=== PATIENT | female | born 1985 | race Caucasian/White ===

== ENCOUNTER 2016-07-22 00:26 | Observation (INO) | payer BC ==
[~2016-07-22 00:26] MED LIST: OXYC1SOL5 PO; PREN0.01 PO
[2016-07-22] MEDS ORDERED: LACTATED RINGER'S 1000 ML INJ 1,000 ML IV STA (00:51)
[2016-07-22] MEDS ORDERED: ONDANSETRON HCL 4 MG/2 ML VIAL IV ONE (01:00)
--- NOTE | 2016-07-22 01:04 | PD ---
HPI Chief Complaint Nausea vomiting with mild contractions Date Seen: Jul 22, 2016 Time Seen: 00:30 Travel History International Travel<30 Days: No Contact w/Intl Traveler<30Days: No Known Affected Area: No History of Present Illness HPI Patient is a 31-year-old who is at 34 weeks and 4 days who complains of nausea and vomiting since 5 PM tonight. Patient has had emesis 8 episodes without the ability to tolerate any fluids orally. The past hour she started having some abdominal cramping along with the nausea. Zofran was not effective when taken orally. Denies fever. She does have some mild diarrhea that started just recently. No one else in the family is ill at this time. Good movement Para: 1 : 2 Last Menstrual Period: Jul 22, 2016 (nedra August 31, 2016) History Past Medical History Medical History: Denies Significant Hx Obstetric History Obstetric History Previous section Breast augmentation Family History Family History: Negative Social History Alcohol Use: No Tobacco Use: No Substance Abuse: No Allergies-Medications (Allergen,Severity, Reaction): Coded Allergies: Sulfa (Verified Allergy, Intermediate, 11/22/14) Home Meds Active Scripts Oxycodone W/ Acetaminophen (Oxycodone/Acetaminophen 5-325 mg/5Ml)1 Tab Tab2 Tab PO Q4H PRN (PAIN SCALE 5 TO 10) #62 TAB Prov:Placido Short MD 12/01/14 Reported Medications Multivit/Min/Fol Ac/Iron/Pren ( Vit ( Plus)) Tab1 Tab PO DAILY 11/22/14 Review of Systems Except as stated in HPI: all other systems reviewed are Neg Physical Exam Narrative GENERAL: Well-nourished, well-developed patient. SKIN: Warm and dry. HEAD: Normocephalic and atraumatic. EYES: No scleral icterus. No injection or drainage. ENT: No nasal drainage noted. Mucous membranes pink. Airway patent. NECK: Supple, trachea midline. No JVD. CARDIOVASCULAR: Regular rate and rhythm without murmurs, gallops, or rubs. RESPIRATORY: Breath sounds equal bilaterally. No accessory muscle use. BREASTS: Bilateral exam showed no masses , no retractions, no nipple discharge. ABDOMEN/GI: Abdomen soft, non-tender, bowel sounds present, no rebound, no guarding Gravid to [-] weeks size Fundal Height: [34-] GENITOURINARY: Deferred External Genitalia: intact and normal in appearance BUS glands: [-] Cervix: [-] Dilatation: [-] Effacement: [-] Station: [-] Presentation: [-] Membranes: [intact or ruptured] Uterine Contractions: [-Irregular] FHT's: Category: [1-] Baseline: 140 Reactive: Moderate Variability: Moderate Decels: Absent EXTREMITIES: No cyanosis or edema. BACK: Nontender without obvious deformity. No CVA tenderness. NEUROLOGICAL: Awake and alert. Motor and sensory grossly within normal limits. Five out of 5 muscle strength in all muscle groups. Normal speech. Briseida Richardson MD Jul 22, 2016 01:04
[2016-07-22 01:17] LABS: HEMATOCRIT 38.9 % (35.0-46.0); MEAN CELL VOLUME 84.9 FL (80.0-100.0); MEAN CORPUSCULAR HEMOGLOBIN 29.9 PG (27.0-34.0); MEAN CORPUSCULAR HGB CONC 35.3 % (32.0-36.0); PLATELET COUNT 313 TH/MM3 (150-450); RED BLOOD COUNT 4.59 MIL/MM3 (4.00-5.30); RED CELL DISTRIBUTION WIDTH 13.8 % (11.6-17.2); REVIEW FLAG FINAL; WHITE BLOOD COUNT 18.3 TH/MM3 (4.0-11.0)
[2016-07-22 01:24] LABS: BACTERIA, URINE RARE /hpf; BLOOD, URINE NEG (NEG); COMMENT (UR) CULT NOT INDICATED; CULTURE IF INDICATED CULT NOT INDICATED; GLUCOSE,URINE NEG (NEG); HYALINE CAST, URINE 1 /lpf (RARE); KETONE, URINE 80 mg/dL (NEG); MUCUS URINE FEW /lpf (OCC); NITRITE,URINE NEG (NEG); PH, URINE 6.5 (5.0-8.5); SQUAMOUS EPITHELIAL CELL URINE 5 /hpf (0-5); URINE COLOR YELLOW (YELLW/STRAW)
[2016-07-22 01:38] LABS: BICARBONATE 21.6 MEQ/L (21.0-32.0); POTASSIUM 3.9 MEQ/L (3.5-5.1)
[2016-07-22] MEDS ORDERED: LACTATED RINGER'S 1000 ML INJ 1,000 ML IV SCH (01:55)
[2016-07-22] MEDS ORDERED: SODIUM CHLORIDE 0.9% FLUSH 5 ML FLUSH IVF PRN (02:00)
[2016-07-22] MEDS ORDERED: ONDANSETRON HCL 4 MG/2 ML VIAL IV PRN (02:00)
[2016-07-22 04:51] LABS: MRSA PCR NEGATIVE (NEGATIVE); STAPH AUREUS PCR NEGATIVE (NEGATIVE)
[2016-07-22 06:06] LABS: BASOPHIL # 0.1 TH/MM3 (0-0.2); BASOPHIL % 0.5 % (0.0-2.0); HEMATOCRIT 34.8 % (35.0-46.0); HEMO FLAGS DIFF FINAL; LYMPH % 3.9 % (9.0-44.0); LYMPHOCYTE # 0.6 TH/MM3 (1.0-4.8); MEAN CELL VOLUME 86.4 FL (80.0-100.0); MEAN CORPUSCULAR HEMOGLOBIN 28.7 PG (27.0-34.0); MEAN CORPUSCULAR HGB CONC 33.3 % (32.0-36.0); MONO % 3.3 % (0.0-8.0); NEUT % 92.3 % (16.0-70.0); PLATELET COUNT 242 TH/MM3 (150-450); RED BLOOD COUNT 4.03 MIL/MM3 (4.00-5.30); RED CELL DISTRIBUTION WIDTH 13.6 % (11.6-17.2); WHITE BLOOD COUNT 15.2 TH/MM3 (4.0-11.0)
[2016-07-22 06:30] LABS: BICARBONATE 22.1 MEQ/L (21.0-32.0); POTASSIUM 3.4 MEQ/L (3.5-5.1)
--- NOTE | 2016-07-22 07:12 | MH ---
cc: XAVIER DOVE DATE OF ADMISSION: 07/22/2016 REASON FOR EVALUATION at 34 weeks with nausea, vomiting and diarrhea. HISTORY OF PRESENT ILLNESS This is a 21-year-old white female, para 1-0-0-1, LMP of 11/17/2015, EDC of 08/31/2016. The patient reported abdominal tightness and pressure about 5:00 p.m. yesterday followed by acute onset of nausea and vomiting at 8:30 p.m. She called me just before midnight and because of symptoms refractory to Zofran was advised to come in for evaluation. She was seen by Dr. Richardson the hospitalist. White count was elevated at 18,000 and urine showed ketones. She was admitted for IV fluids and antiemetic therapy and is now improving. PAST MEDICAL/SURGICAL HISTORY 1. Breast augmentation 2003 and 2013. 2. 2014. ALLERGIES SULFA. TRANSFUSIONS None. SOCIAL HISTORY . Employed. Alcohol, tobacco and drugs are none. PHYSICAL EXAMINATION GENERAL: A gravid white female in no distress. HEENT: Exam is normal. CHEST: Clear. HEART: Regular rate. ABDOMEN: Gravid, nontender. Heart tones are normal. EXTREMITIES: Normal. BACK: Normal. PELVIC: normal. ASSESSMENT Gastroenteritis. PLAN Continue IV fluid hydration and antibiotic therapy until she can tolerate fluids well. She reports diarrhea x1 after midnight. MD RACHAEL Tucker/LAMBERT /6:47 AM /6:55 AM [facility]
[2016-07-22 08:52] VITALS: BP 123/72; PULSE 107
[2016-07-22 08:53] VITALS: RESP 16
[2016-07-22] MEDS ORDERED: SODIUM CHLORIDE 0.9% FLUSH 5 ML FLUSH IVF SCH (09:00)
[2016-07-22 12:15] LABS: BACTERIA, URINE RARE /hpf; BLOOD, URINE NEG (NEG); COMMENT (UR) CULT NOT INDICATED; CULTURE IF INDICATED CULT NOT INDICATED; GLUCOSE,URINE NEG (NEG); KETONE, URINE NEG (NEG); MUCUS URINE FEW /lpf (OCC); NITRITE,URINE NEG (NEG); PH, URINE 7.5 (5.0-8.5); SQUAMOUS EPITHELIAL CELL URINE 4 /hpf (0-5); URINE COLOR LIGHT-YELLOW (YELLW/STRAW)
[2016-07-23] MEDS ORDERED: LACTATED RINGER'S 1000 ML INJ 1,000 ML IV SCH (02:00)
== END 2016-07-22 13:53 | disposition home or self-care (01) ==
LOC: HOBED 00:26 → H2EA 02:02
PROVIDERS: ADMIT Obstetrics & Gynecology; ATTEND Obstetrics & Gynecology
DX: K52.9 Noninfective gastroenteritis and colitis, unspecified (principal); Z3A.34 34 weeks gestation of pregnancy
CPT/HCPCS: 80048; 81001; 85025; 85027; 87640; 87641; 96361; 96374; 99285; G0378; J2405; J7120

== ENCOUNTER 2016-08-04 12:09 | Inpatient (IN) | payer BC ==
[~2016-08-04] VITALS: Ht 162.6 cm; Wt 79.8 kg
[~2016-08-04 12:09] MED LIST changes: -OXYC1SOL5 PO
[2016-08-19] VITALS (13 sets, daily range): BP systolic 117–153; BP diastolic 70–95; PULSE 86–101; RESP 16–19; TEMP 97.7–98.7; O2SAT 97–99
--- NOTE | 2016-08-19 08:56 | MH ---
cc: XAVIER DOVE M.D. DATE OF ADMISSION: 08/19/2016 ADMISSION DIAGNOSES 1. at 37 weeks. 2. Recurrent preeclampsia. 3. Previous . 4. Low KENDRA-A hormone. HISTORY OF PRESENT ILLNESS The patient is a 31-year-old white female para 1-0-0-1 with an LMP of 10/2015, EDC of 08/31/2016 by dates, 09/09/2016 by early ultrasound. Her first TM screen was normal except for a low KENDRA-A hormone. Her course has been benign. Panorama testing was normal. Her AFP test was normal. Her blood pressure began to rise on 07/29/2016. She was placed on bedrest. She was admitted for 23-hour observation on 08/11/2016. Laboratory tests were normal except the 24-hour urine showed 300 mg protein in 24 hours. She has been maintained on bedrest, is asymptomatic except the blood pressures is in the 130/90+ range. Biophysical profiles biweekly have been normal. Her case was discussed with the [facility] on 07/2016. They recommended repeat at 37 weeks. The patient is now admitted for same. PAST MEDICAL HISTORY PREVIOUS SURGERY She had breast augmentation in 2003, re-do in 2013. MEDICATIONS Vitamins. ALLERGIES POLLEN. SULFA. TRANSFUSIONS None. SOCIAL HISTORY She is employed. PREVIOUS OB HISTORY in 11/28/2014 for severe preeclampsia with decels on her nonstress test. FAMILY HISTORY Non-contributory. PHYSICAL EXAMINATION GENERAL: A well-nourished, well-developed white female. VITAL SIGNS: Stable. Blood pressure elevated. HEENT: Exam is normal. CHEST: Clear. HEART: Regular rate. BREASTS: Symmetrical. ABDOMEN: Gravid. EFW of the 3000 grams. Vertex presentation. Anterior placenta. PELVIC: Cervix is closed. EXTREMITIES: 2+ edema. NEUROLOGIC: Reflexes normal. ASSESSMENT As above. PLAN She is now admitted for repeat section. The risks, benefits and complications including infection, injury, bleeding and prematurity are discussed and accepted versus the risk of maternal or morbidity by maintaining the to a later time. The patient is advised delivery. MD RACHAEL Tucker/OLIVIA /8:28 AM /8:37 AM
[2016-08-19] MEDS ORDERED: LACTATED RINGER'S 1000 ML INJ 1,000 ML IV SCH (13:04)
[2016-08-19] MEDS ORDERED: ceFAZolin 2 GM PREMIX 50 ML IV SCH (16:00)
[2016-08-19] MEDS ORDERED: CITRIC ACID-SODIUM CITRATE LIQ 30 ML UDC PO SCH (16:00)
[2016-08-19] MEDS ORDERED: LACTATED RINGER'S 1000 ML IV ONE (16:00)
[2016-08-19] MEDS ORDERED: LACTATED RINGER'S 1000 ML IV SCH (16:00)
[2016-08-19 16:13] LABS: AUTOMATED NEUTROPHIL # 11.1 TH/MM3 (1.8-7.7); BASOPHIL % 0.3 % (0.0-2.0); EOSINOPHIL # 0.1 TH/MM3 (0-0.4); HEMATOCRIT 35.3 % (35.0-46.0); HEMO FLAGS DIFF FINAL; LYMPHOCYTE # 1.8 TH/MM3 (1.0-4.8); MEAN CELL VOLUME 82.1 FL (80.0-100.0); MEAN CORPUSCULAR HEMOGLOBIN 27.4 PG (27.0-34.0); MEAN CORPUSCULAR HGB CONC 33.3 % (32.0-36.0); MONO % 5.4 % (0.0-8.0); NEUT % 80.3 % (16.0-70.0); PLATELET COUNT 293 TH/MM3 (150-450); RED CELL DISTRIBUTION WIDTH 14.7 % (11.6-17.2); WHITE BLOOD COUNT 13.9 TH/MM3 (4.0-11.0)
[2016-08-19 16:21] LABS: BACTERIA, URINE RARE /hpf; BLOOD, URINE SMALL (NEG); COMMENT (UR) CULT NOT INDICATED; CULTURE IF INDICATED CULT NOT INDICATED; GLUCOSE,URINE NEG (NEG); KETONE, URINE NEG (NEG); MUCUS URINE FEW /lpf (OCC); NITRITE,URINE NEG (NEG); PH, URINE 6.5 (5.0-8.5); SQUAMOUS EPITHELIAL CELL URINE 10 /hpf (0-5); URINE COLOR YELLOW (YELLW/STRAW)
[2016-08-19] MEDS ORDERED: ONDANSETRON HCL 4 MG/2 ML VIAL ONE (16:23)
[2016-08-19] MEDS ORDERED: OXYTOCIN 10 UNIT/ML AMP ONE (16:23)
[2016-08-19] MEDS ORDERED: MORPHINE SULFATE PF 5 MG/10 ML VIAL ONE (16:23)
[2016-08-19] MEDS ORDERED: ACETAMINOPHEN 1000 MG/100 ML VIAL IV ONE (16:24)
[2016-08-19 16:41] LABS: ANION GAP 11 MEQ/L (5-15); AST (GOT) 12 U/L (15-37); BICARBONATE 21.6 MEQ/L (21.0-32.0); BLOOD UREA NITROGEN 8 MG/DL (7-18); CHLORIDE 105 MEQ/L (98-107); GLOMERULAR FILTRATION RATE 136 ML/MIN (>89); POTASSIUM 3.7 MEQ/L (3.5-5.1); SODIUM (NA) 138 MEQ/L (136-145)
[2016-08-19 16:45] LABS: ALKALINE PHOSPHATASE 116 U/L (45-117); ALT (GPT) 20 U/L (10-53); TOTAL BILIRUBIN ADULT 0.2 MG/DL (0.2-1.0)
[2016-08-19] MEDS ORDERED: EPIDURAL-NALOXONE HCL 0.4 MG/ML AMP IV PRN (17:25)
[2016-08-19] MEDS ORDERED: EPIDURAL-DO NOT ADMINISTER ANTICOAGULANTS XX PRN (17:25)
[2016-08-19] MEDS ORDERED: EPIDURAL-NO SYSTEMIC NARCOTICS XX PRN (17:25)
[2016-08-19] MEDS ORDERED: EPIDURAL-DIPHENHYDRAMINE HCL 50 MG CAP PO PRN (17:25)
[2016-08-19] MEDS ORDERED: EPIDURAL-DIPHENHYDRAMINE HCL 50 MG/ML VIAL IV PUSH PRN (17:25)
[2016-08-19] MEDS ORDERED: OXYTOCIN 30 UNITS-500ML PREMIX 500 ML IV PRN (18:15)
[2016-08-19] MEDS: LACTATED RINGER'S 1000 ML INJ 1,000 ML IV SCH (18:22)
[2016-08-19] MEDS: MAGNESIUM SULFATE 40 GM PREMIX 1,000 ML IV SCH (18:22)
[2016-08-19] MEDS ORDERED: MAGNESIUM SULFATE 40 GM PREMIX 1,000 ML ONE (18:23)
[2016-08-19] MEDS ORDERED: MAGNESIUM SULFATE 4 GM PREMIX 100 ML ONE (18:23)
[2016-08-19] MEDS ORDERED: MAGNESIUM SULFATE 4 GM PREMIX 100 ML IV ONE (18:30)
[2016-08-19] MEDS ORDERED: OXYTOCIN 30 UNITS-500ML PREMIX 500 ML IV ONE (18:30)
[2016-08-19] MEDS ORDERED: ONDANSETRON HCL 4 MG/2 ML VIAL IVP PRN (18:30)
[2016-08-19] MEDS ORDERED: DOCUSATE SODIUM 50 MG/SENNA 8.6 MG TAB PO PRN (18:30)
[2016-08-19] MEDS ORDERED: SIMETHICONE 80 MG CHEWABLE TAB PO PRN (18:30)
[2016-08-19] MEDS ORDERED: NIFEdipine 10 MG CAP PO PRN ×3 (18:30→19:15)
[2016-08-19] MEDS ORDERED: SODIUM CHLORIDE 0.9% FLUSH 5 ML FLUSH IV PRN (18:30)
[2016-08-19] MEDS ORDERED: ZOLPIDEM TARTRATE 5 MG TAB PO PRN (18:30)
[2016-08-19] MEDS ORDERED: SODIUM CHLORIDE 0.9% FLUSH 10 ML FLUSH IV FLUSH PRN (18:30)
[2016-08-19] MEDS ORDERED: oxyCODONE/ACETAMINOPHEN 5 MG/325 MG TAB PO PRN (18:30)
[2016-08-19] MEDS ORDERED: MEASLES, MUMPS, RUBELLA VACCINE 0.5 ML VIAL SQ ONE (18:30)
[2016-08-19] MEDS ORDERED: CALCIUM GLUCONATE 10% 1 GM/10 ML VIAL IV PUSH PRN (18:30)
[2016-08-19] MEDS ORDERED: LACTATED RINGER'S 1,000 ML BAG IV ONE (18:55)
[2016-08-19] MEDS ORDERED: DEXAMETHASONE SOD PHOS 4 MG/ML VIAL IV ONE (18:55)
[2016-08-19] MEDS ORDERED: KETOROLAC TROMETHAMINE 60 MG/2 ML (IM) VIAL IM ONE (18:55)
[2016-08-19] MEDS ORDERED: LABETALOL HCL 100 MG/20 ML VIAL IV PUSH PRN (19:30)
[2016-08-19] MEDS ORDERED: SODIUM CHLORIDE 0.9% FLUSH 5 ML FLUSH IV SCH (21:00)
[2016-08-19] MEDS ORDERED: SODIUM CHLORIDE 0.9% FLUSH 10 ML FLUSH IV FLUSH SCH (21:00)
[2016-08-19] MEDS ORDERED: AMMONIA AROMATIC INHALANT 0.33 ML ONE (22:47)
[2016-08-20] VITALS (15 sets, daily range): BP systolic 114–135; BP diastolic 67–83; PULSE 88–102; RESP 18–20; TEMP 97.4–98.6
[2016-08-20] MEDS: LACTATED RINGER'S 1000 ML INJ 1,000 ML IV SCH (08:28)
[2016-08-20 09:23] LABS: AUTOMATED NEUTROPHIL # 16.1 TH/MM3 (1.8-7.7); BASOPHIL % 0.2 % (0.0-2.0); EOSINOPHIL % 0.1 % (0.0-4.0); HEMO FLAGS DIFF FINAL; LYMPH % 9.4 % (9.0-44.0); LYMPHOCYTE # 1.8 TH/MM3 (1.0-4.8); MEAN CELL VOLUME 82.9 FL (80.0-100.0); MEAN CORPUSCULAR HEMOGLOBIN 26.7 PG (27.0-34.0); MEAN CORPUSCULAR HGB CONC 32.2 % (32.0-36.0); MONO % 5.3 % (0.0-8.0); PLATELET COUNT 275 TH/MM3 (150-450); RED CELL DISTRIBUTION WIDTH 14.8 % (11.6-17.2)
[2016-08-20 10:13] LABS: BICARBONATE 26.7 MEQ/L (21.0-32.0); MAGNESIUM 6.1 MG/DL (1.5-2.5)
[2016-08-20 10:39] LABS: CALCIUM-PROTEIN CORRECTED 7.9 MG/DL (8.5-10.1)
[2016-08-20] MEDS: MAGNESIUM SULFATE 40 GM PREMIX 1,000 ML IV SCH (14:59)
[2016-08-20] MEDS: KETOROLAC TROMETHAMINE 30 MG/ML (IVP) VIAL IV PUSH SCH (17:40)
[2016-08-21] VITALS: RESP 16
[2016-08-21 04:00] VITALS: BP 124/75; PULSE 84; RESP 18; TEMP 98.4
[2016-08-21] MEDS: KETOROLAC TROMETHAMINE 30 MG/ML (IVP) VIAL IV PUSH SCH ×2 (04:28→07:59)
[2016-08-21 08:00] VITALS: BP 115/79; PULSE 88; RESP 18; TEMP 98.7
[2016-08-21] MEDS ORDERED: DIPHTH/TETANUS/ACEL PERTUSSIS (BOOSTER) 0.5 ML VIAL/PFS IM ONE (09:00)
[2016-08-21] MEDS: oxyCODONE/ACETAMINOPHEN 5 MG/325 MG TAB PO PRN ×3 (12:18→20:25)
[2016-08-21] MEDS: IBUPROFEN 600 MG TAB PO PRN ×2 (14:21→20:24)
[2016-08-21 15:00] VITALS: BP 117/78; PULSE 90; RESP 16; TEMP 98.4
[2016-08-22 01:00] VITALS: BP 138/91; PULSE 83; RESP 18; TEMP 97.7
[2016-08-22] MEDS: oxyCODONE/ACETAMINOPHEN 5 MG/325 MG TAB PO PRN ×2 (01:13→06:12)
[2016-08-22 06:10] VITALS: BP 129/79
[2016-08-22] MEDS: IBUPROFEN 600 MG TAB PO PRN (06:12)
[2016-08-22 08:00] VITALS: BP 144/91; PULSE 86; RESP 18; TEMP 97.8
[2016-08-22] MEDS ORDERED: OXYC1TAB63 PO (08:22)
--- NOTE | 2016-08-22 08:22 | HHI.DCPOC ---
Discharge Care Plan Report Symptoms to Your Doctor -Temperate above 100.5 degrees -Redness, of incision or excessive or foul smelling drainage -Unusual pain or calf pain -Increased vaginal bleeding -Painful or difficulty urinating -Feelings of extreme sadness or anxiety after 2 weeks Goals to Promote Your Health * To prevent worsening of your condition and complications * To maintain your health at the optimal level Directions to Meet Your Goals Take your medications as prescribed Follow your dietary instruction Follow activity as directed Ensure plenty of rest for recovery Drink fluids for hydration Keep your appointments as scheduled Take your immunizations and boosters as scheduled If your symptoms worsen call your PCP, if no PCP go to Urgent Care Center or Emergency Room Smoking is Dangerous to Your Health. Avoid second hand smoke Call the 24-hour crisis hotline for domestic abuse at Placido Short MD Aug 22, 2016 08:22
--- NOTE | 2016-08-23 12:49 | MP ---
cc: XAVIER DOVE M.D. DATE OF SURGERY: 08/19/2016 PREOPERATIVE DIAGNOSIS 1. at 37 weeks. 2. Severe preeclampsia. 3. Previous . 4. Low KENDRA A hormone. POSTOPERATIVE DIAGNOSIS 1. at 37 weeks. 2. Severe preeclampsia. 3. Previous . 4. Low KNEDRA A hormone. 5. Delivered. PROCEDURE Repeat low transverse section. ANESTHESIA Spinal. SURGEON Deja Bass MD [employer] ESTIMATED BLOOD LOSS 600 cc. FLUIDS Three liters crystalloid. OBJECTIVE FINDINGS Following the induction of adequate spinal anesthesia the patient was prepped and draped supine on the operating table in the left lateral tilt position in the usual sterile fashion with the bladder being drained via Merchant catheterization. The abdomen was opened through a Pfannenstiel incision using a knife to cut down through the skin to the fascia. The fascia was opened transversely and stripped from the muscles. The rectus muscle was split in the midline and the peritoneum opened sharply without incident. The bladder flap was taken down sharply and retracted with a Igor blade. The lower uterine segment was incised transversely with a knife and extended with blunt dissection. The uterus revealed clear fluid. The baby was in the LOT position. The vacuum extractor was applied to the occiput and used to lift the head through the uteroabdominal wound. The mouth was suctioned, cord clamped and cut, and nuchal cord reduced. The baby was passed to the team, a viable vigorous female, Apgars 9 and 9, weight 6 pounds even. Cord blood was collected for typing. The placenta was manually removed. The uterine cavity was wiped clean with laps. The uterus was exteriorized and closed in two layers of running suture, first with a running locking stitch of 0 Vicryl, the second with a running imbricating stitch of 0 Vicryl. Posterior inspection of the uterus, tubes and ovaries was normal. The uterus was paced in the peritoneal cavity. Irrigation was performed. No bleeding was evident. The bladder flap was closed with a running stitch of 3-0 Vicryl. All laps and retractors were removed. Counts were correct. The anterior peritoneum was closed with a running stitch of 2-0 Vicryl. The fascia was closed with a running locking stitch of 0 Vicryl corner to midline and tied, subcu closed with 3-0 Vicryl and skin with running subcuticular 3-0 Monocryl. Dermabond was applied. All counts were correct. The patient was awake and taken to the recovery room in good condition. MD RACHAEL Tucker/LAMBERT /6:29 PM /12:40 PM
--- NOTE | 2016-08-29 07:26 | MD ---
cc: XAVIER DOVE ADMISSION DATE: 08/19/2016 DISCHARGE DATE: 08/22/2016 ADMISSION DIAGNOSIS 1. 37 weeks. 2. Severe preeclampsia. 3. Previous 4. Low Pap A hormone. DISCHARGE DIAGNOSIS 1. 37 weeks. 2. Severe preeclampsia. 3. Previous 4. Low Pap A hormone. 5. Delivered. HISTORY OF PRESENT ILLNESS The patient is a 31-year-old white female para 1-0-0-1 with EDC of 09/09/2016 by early ultrasound. Her first TM screen was pertinent for a low Pap A hormone. She was followed carefully for growth and development, and blood pressure monitoring. Her labs include Rh positive,VDRL nonreactive, rubella immune, rubeola immune, HAA negative, Pap negative, glucose screen was normal. Strep culture positive. She developed a rise in blood pressure on 07/29/2016. She began biweekly testing, was admitted to the hospital on 08/11/2016. Laboratory studies were pertinent for elevated protein of 300 mg in 24 hours. She was maintained on bedrest at home. Consultation was obtained via phone with [facility] in [place], recommended delivery at 37 weeks. She was admitted on 08/19/2016, underwent a repeat low transverse section with delivery of a viable vigorous female. Apgars 9 and 9, weight 6 pounds even. The baby was named Darien Coats. Postop she received magnesium sulfate for 24 hours. Her blood pressure rapidly improved. Her pre and postop labs were normal. She was advised NPV, light activity, no driving, return to see me in 1 week. She is to call for abnormal pain, bleeding, temperature, signs of infection, depression. She was given a prescription for Percocet 5, one to two p.o. q.4 hours p.r.n. pain #60. MD RACHAEL Tucker/TRICIA /8:28 AM /7:00 AM ED
== END 2016-08-22 10:59 | disposition home or self-care (01) | DRG 766 ==
LOC: H2EB 08-19 15:30 → H1EA 08-19 20:56 → H2EA 08-19 20:56 → H1EA 08-20 18:52
PROVIDERS: ADMIT Obstetrics & Gynecology; ATTEND Obstetrics & Gynecology
PROC: 10D00Z1 Extraction of Products of Conception, Low, Open Approach (ICD-10-PCS; principal; 2016-08-19)
DX: O14.14 Severe pre-eclampsia complicating childbirth (principal); O99.824 Streptococcus B carrier state complicating childbirth; O34.211 Maternal care for low transverse scar from previous cesarean delivery; Z37.0 Single live birth; Z3A.37 37 weeks gestation of pregnancy; O69.81X0 Labor and delivery complicated by cord around neck, without compression, not applicable or unspecified
CPT/HCPCS: 59025; 76818; 76820; 80048; 80053; 81001; 83735; 84155; 84550; 85025; 86850; 86900; 86901; J0131; J0690; J1100; J1885; J2274; J2405; J2590; J3475; J7120

== ENCOUNTER 2016-08-11 15:56 | Observation (INO) | payer BC ==
[~2016-08-11] VITALS: Ht 152.4 cm; Wt 65.3 kg
[~2016-08-11 15:56] MED LIST changes: +OXYC1SOL5 PO
[2016-08-11 17:58] LABS: BACTERIA, URINE FEW /hpf; BLOOD, URINE NEG (NEG); GLUCOSE,URINE NEG (NEG); KETONE, URINE NEG (NEG); MUCUS URINE FEW /lpf (OCC); NITRITE,URINE NEG (NEG); SQUAMOUS EPITHELIAL CELL URINE 9 /hpf (0-5); URINE COLOR YELLOW (YELLW/STRAW)
[2016-08-11 17:59] LABS: ANION GAP 12 MEQ/L (5-15); AST (GOT) 14 U/L (15-37); BICARBONATE 22.8 MEQ/L (21.0-32.0); BLOOD UREA NITROGEN 7 MG/DL (7-18); CHLORIDE 104 MEQ/L (98-107); GLOMERULAR FILTRATION RATE 93 ML/MIN (>89); POTASSIUM 3.8 MEQ/L (3.5-5.1); SODIUM (NA) 139 MEQ/L (136-145); URIC ACID 4.3 MG/DL (2.6-6.0)
[2016-08-11 18:00] LABS: COMMENT (UR) CULT NOT INDICATED; CULTURE IF INDICATED CULT NOT INDICATED
[2016-08-11 18:02] LABS: ALKALINE PHOSPHATASE 115 U/L (45-117); ALT (GPT) 17 U/L (10-53); TOTAL BILIRUBIN ADULT 0.1 MG/DL (0.2-1.0)
[2016-08-11 18:08] LABS: AUTOMATED NEUTROPHIL # 9.5 TH/MM3 (1.8-7.7); BASOPHIL % 0.4 % (0.0-2.0); EOSINOPHIL # 0.1 TH/MM3 (0-0.4); EOSINOPHIL % 1.1 % (0.0-4.0); HEMATOCRIT 36.5 % (35.0-46.0); HEMO FLAGS DIFF FINAL; LYMPH % 14.2 % (9.0-44.0); LYMPHOCYTE # 1.7 TH/MM3 (1.0-4.8); MEAN CELL VOLUME 83.9 FL (80.0-100.0); MEAN CORPUSCULAR HEMOGLOBIN 27.6 PG (27.0-34.0); MEAN CORPUSCULAR HGB CONC 32.9 % (32.0-36.0); MONO % 6.7 % (0.0-8.0); NEUT % 77.6 % (16.0-70.0); PLATELET COUNT 325 TH/MM3 (150-450); RED BLOOD COUNT 4.35 MIL/MM3 (4.00-5.30); RED CELL DISTRIBUTION WIDTH 14.2 % (11.6-17.2); WHITE BLOOD COUNT 12.2 TH/MM3 (4.0-11.0)
[2016-08-11] MEDS ORDERED: ZOLPIDEM TARTRATE 10 MG TAB PO PRN (19:00)
--- NOTE | 2016-08-11 19:07 | MH ---
cc: XAVIER DOVE DATE OF ADMISSION: 08/11/2016 ADMITTING DIAGNOSIS: -induced hypertension, preeclampsia at 36 weeks, previous . HISTORY OF PRESENT ILLNESS The patient is a 31-year-old white female para 1-0-0-1, EDC of 09/09/2016 by early ultrasound. Her first TM screen was normal except for a low Pap A hormone. Her first was notable for severe preeclampsia required delivery at 37-38 weeks by . Her blood pressure has been starting to increase since about 07/29/2016. Her laboratory tests within normal. Ultrasound showed appropriate growth and biweekly BPPs have been normal. She called this afternoon with BP at home about 160/100, was advised to come in for evaluation. Blood pressure here initially elevated in that range is now down to about 145/88 with rest. She denies headache, visual changes or abdominal pain. She has had a few mild contractions, slightly increase in peripheral edema. PAST SURGICAL HISTORY: 1. Breast augmentation in 2003. 2. Revision in 2013. ALLERGIES: Pollen and sulfa. TRANSFUSIONS: None. OBSTETRICAL HISTORY: 11/28/2014 for preeclampsia. SOCIAL HISTORY: She works from home. She is . Alcohol, tobacco and drugs: None. FAMILY HISTORY: Noncontributory. PHYSICAL EXAMINATION: Reveals a gravid white female in no distress. HEENT: Normal with mild facial edema. Extremities: Normal. Chest: Clear. Heart: Regular rate. Abdomen: Gravid. EFW is 2800 grams. Reflexes are 2+ and equal. Extremities: 2+ edema to the knees. ASSESSMENT: As above. PLAN: She is now admitted for laboratory evaluation. Initial studies were normal. She will be admitted for 24 hour urine, observation, and if she is stable, will try to maintain the . If she shows signs of worsening disease, she will proceed with delivery. MD RACHAEL Tucker/TRICIA /6:46 PM /7:00 PM
[2016-08-11 19:15] VITALS: RESP 18
[2016-08-11] MEDS ORDERED: ALUMINUM/MAGNESIUM/SIMETH 30 ML CUP PO PRN (19:15)
[2016-08-11 19:54] VITALS: BP 139/90; PULSE 84
[2016-08-11 19:55] VITALS: BP 147/91; PULSE 83; RESP 18
[2016-08-11] MEDS ORDERED: diphenhydrAMINE HCL 25 MG CAP PO PRN (20:45)
[2016-08-11 22:03] VITALS: BP 143/88; PULSE 103
[2016-08-11 22:15] VITALS: RESP 18
[2016-08-12] VITALS (10 sets, daily range): BP systolic 130–137; BP diastolic 82–91; PULSE 77–93; RESP 18; TEMP 97.5–98.4
--- NOTE | 2016-08-12 18:39 | HHI.DCPOC ---
Discharge Care Plan Report Symptoms to Your Doctor -Temperate above 100.5 degrees -Redness, of incision or excessive or foul smelling drainage -Unusual pain or calf pain -Increased vaginal bleeding -Painful or difficulty urinating -Feelings of extreme sadness or anxiety after 2 weeks Goals to Promote Your Health * To prevent worsening of your condition and complications * To maintain your health at the optimal level Directions to Meet Your Goals Take your medications as prescribed Follow your dietary instruction Follow activity as directed Ensure plenty of rest for recovery Drink fluids for hydration Keep your appointments as scheduled Take your immunizations and boosters as scheduled If your symptoms worsen call your PCP, if no PCP go to Urgent Care Center or Emergency Room Smoking is Dangerous to Your Health. Avoid second hand smoke Call the 24-hour crisis hotline for domestic abuse at Placido Short MD Aug 12, 2016 18:39
[2016-08-12 21:59] LABS: CREAT 24 TIMED 119.1 MG/DL
== END 2016-08-12 19:41 | disposition home or self-care (01) ==
LOC: HOBED 15:56 → H2EA 18:28
PROVIDERS: ADMIT Obstetrics & Gynecology; ATTEND Obstetrics & Gynecology
DX: O13.3 Gestational [pregnancy-induced] hypertension without significant proteinuria, third trimester (principal); O34.219 Maternal care for unspecified type scar from previous cesarean delivery; Z3A.36 36 weeks gestation of pregnancy
CPT/HCPCS: 36415; 76819; 76820; 80053; 81001; 82248; 82570; 84157; 84550; 85025; 96360; 96361; 99284; G0378

== ENCOUNTER 2017-12-19 15:47 | Inpatient (IN) ==
[2017-12-19] MEDS ORDERED: Morphine Sulfate PF Inj 5 MG/10 ML Ampul ONE (17:05)
[2017-12-19] MEDS ORDERED: Ketorolac Inj 30 MG/ML (IVP) Vial ONE (17:05)
[2017-12-19 17:23] LABS: Baso % (Auto) 0.3 % (0.0-2.0); Eos # (Auto) 0.1 th/mm3 (0.0-0.4); Eos % (Auto) 0.5 % (0.0-4.0); Hematocrit 35.8 % (35.0-46.0); Hemoglobin 11.8 gm/dL (11.6-15.3); Lymph % (Auto) 17.3 % (9.0-44.0); Mean Corpuscular HGB Conc 32.9 % (32.0-36.0); Mean Corpuscular Hemoglobin 27.2 pg (27.0-34.0); Mean Corpuscular Volume 82.9 fL (80.0-100.0); Mean Platelet Volume 7.9 fL (7.0-11.0); Mono # (Auto) 0.9 th/mm3 (0.0-0.9); Mono % (Auto) 7.6 % (0.0-8.0); Neut # (Auto) 8.6 th/mm3 (1.8-7.7); Neut % (Auto) 74.3 % (16.0-70.0); Platelet Count 288 th/mm3 (150-450); Red Blood Count 4.32 mil/mm3 (4.00-5.30); Red Cell Distribution Width 15.4 % (11.6-17.2); White Blood Count 11.5 th/mm3 (4.0-11.0)
[2017-12-19 17:34] LABS: Amphetamine Screen,Urine Neg (Neg); Barbiturate Screen,Urine Neg (Neg); Cannabinoid Screen,Urine Neg (Neg); Cocaine Screen,Urine Neg (Neg)
[2017-12-19 17:43] LABS: Alanine Aminotransferase 13 U/L (10-53); Albumin 2.6 g/dL (3.4-5.0); Anion Gap 11 meq/L (5-15); Aspartate Aminotransferase 12 U/L (15-37); Blood Urea Nitrogen 7 mg/dL (7-18); Calcium 8.7 mg/dL (8.5-10.1); Chloride 105 meq/L (98-107); Glomerular Filtration Rate Greater Than 89 mL/min (>89); Glucose,Random 66 mg/dL (74-106); Potassium 3.5 meq/L (3.5-5.1); Sodium 138 meq/L (136-145)
[2017-12-19 17:44] LABS: Opiate Screen,Urine Neg (Neg)
[2017-12-19 17:46] LABS: Alkaline Phosphatase 152 U/L (45-117)
[2017-12-19 17:59] LABS: Amorphous Sediment,Urine Rare /hpf; Bacteria,Urine Moderate /hpf; Bilirubin,Urine Negative (Negative); Clarity,Urine Cloudy (Clear); Color,Urine Yellow (Yellw/Straw); Glucose,Urine (UA) Negative (Negative); Leukocyte Esterase,Urine Small (Negative); Mucus,Urine Few /lpf (Occasional); Nitrite,Urine Negative (Negative); Specific Gravity,Urine 1.017 (1.002-1.035); Squamous Epithelial Cell,Urine 33 /hpf (0-5)
[2017-12-19] MEDS ORDERED: Citric Acid/Sodium Citrate Liq 30 ML UDC PO SCH (18:30)
[2017-12-19] MEDS ORDERED: ceFAZolin Inj 2,000 MG in Sodium Chlor 0.9% Inj 80 ML IV.SIG SCH (19:00)
[2017-12-19] MEDS ORDERED: Mag Sulf/Water 4 gm/100 ml 100 ML IV.SIG ONE ×2 (19:29→19:45)
[2017-12-19] MEDS ORDERED: Mag Sulf/Water 40 gm/1000 ml 40 GM/1,000 ML BAG IV.CONT ONE (19:29)
[2017-12-19] MEDS ORDERED: Naloxone Inj 0.4 MG/ML Vial IV.PUSH PRN (19:44)
[2017-12-19] MEDS ORDERED: NIFEdipine 10 MG Capsule PO PRN (19:45)
[2017-12-19] MEDS ORDERED: Mag Sulf/Water 40 gm/1000 ml 40 GM/1,000 ML BAG IV.CONT SCH (20:00)
[2017-12-19] MEDS ORDERED: Oxytocin 30 Units/500ml Premix 30 UNITS/500 ML BAG IV.SIG ONE (20:10)
[2017-12-19] MEDS ORDERED: Zolpidem Tartrate 5 MG Tablet PO PRN (20:18)
[2017-12-19] MEDS ORDERED: Senna/Docusate Sodium 8.6/50 MG Tablet PO PRN (20:18)
[2017-12-20] MEDS ORDERED: Oxytocin 30 Units/500ml Premix 30 UNITS/500 ML BAG IV.SIG PRN (01:10)
[2017-12-20 02:22] LABS: Hematocrit 36.5 % (35.0-46.0); Mean Corpuscular HGB Conc 32.8 % (32.0-36.0); Mean Corpuscular Volume 82.2 fL (80.0-100.0); Mean Platelet Volume 7.5 fL (7.0-11.0); Platelet Count 286 th/mm3 (150-450); Red Blood Count 4.44 mil/mm3 (4.00-5.30); Red Cell Distribution Width 15.5 % (11.6-17.2); White Blood Count 21.2 th/mm3 (4.0-11.0)
--- NOTE | 2017-12-20 09:36 | MP ---
cc: Placido Short MD DATE OF OPERATION: 12/19/2017 PREOPERATIVE DIAGNOSES: 1. at 38/39 weeks. 2. Severe preeclampsia. 3. Previous section x 2. POSTOPERATIVE DIAGNOSES: 1. at 38/39 weeks. 2. Severe preeclampsia. 3. Previous section x 2. 4. Delivered. PROCEDURE PERFORMED: Repeat low transverse section. ANESTHESIA: Spinal. SURGEON: Placido Short MD SENIOR CHEMICAL PROCESS ENGINEER: Tram Stein ESTIMATED BLOOD LOSS: 500 mL FLUIDS: One liter crystalloid. DESCRIPTION OF PROCEDURE: Following induction of adequate spinal anesthesia, the patient was prepped and draped supine on the operating table in left lateral tilt position in the usual sterile fashion, with the bladder being drained by a Merchant catheterization. The abdomen was opened through a Pfannenstiel incision using a knife to excise her old scar in the process. The fascia opened transversely, stripped from the muscles, rectus muscle split in the midline and the peritoneum opened sharply without incident. The bladder flap was taken down sharply and retracted with the [place] blade. The lower uterine segment was incised transversely with a knife, extended with blunt dissection. Membranes were ruptured with clear fluid. Baby was in LOT position. The vacuum extractor applied to the occiput and used to deliver the head through the abdominal wound. Mouth was suctioned. The cord clamped and cut and the baby passed to the awaiting team; a viable vigorous male, Apgars 8 and 9, weight 7 pounds 5 ounces. Cord blood obtained for typing. Placenta removed and the uterine cavity cleaned with laps. The uterus was exteriorized and closed in 2 layers running suture, first with a running locking stitch Vicryl, second with running imbricating stitch Vicryl. Posterior inspection revealed normal uterus, tubes and ovaries. The uterus was replaced in the cavity, irrigation performed. No bleeding was evident and the bladder flap was closed with a running stitch of 3-0 Vicryl. All laps and sponges was removed. Counts were correct. The anterior peritoneum closed with running 2-0 Vicryl. Fascia closed with a running locking stitch of 0 Vicryl corner to the midline tied, subcutaneous closed with 3-0 Vicryl, and the skin with running subcuticular 3-0 Monocryl. Dermabond applied. All counts were correct and the patient was awakened and taken to the recovery room in good condition. MD RACHAEL Tucker/PATSY , 06:40 PM , 07:27 PM
[2017-12-20] MEDS: Ibuprofen 600 MG Tablet PO PRN ×2 (15:42→21:43)
[2017-12-20] MEDS ORDERED: Measles/Mumps/Rubella Vaccine Inj 0.5 ML Vial SQ ONE (16:00)
[2017-12-20] MEDS ORDERED: Diphtheria/Tetanus/Pertussis Vaccine Inj 0.5 ML Syringe IM ONE (16:00)
[2017-12-20 16:39] VITALS: O2SAT 97
[2017-12-21] MEDS: Ibuprofen 600 MG Tablet PO PRN ×3 (07:54→22:22)
[2017-12-21 08:47] VITALS: RESP 18
[2017-12-21 13:58] LABS: Hematocrit 31.9 % (35.0-46.0); Hemoglobin 10.6 gm/dL (11.6-15.3); Mean Corpuscular HGB Conc 33.3 % (32.0-36.0); Mean Corpuscular Hemoglobin 27.6 pg (27.0-34.0); Mean Corpuscular Volume 82.7 fL (80.0-100.0); Mean Platelet Volume 7.3 fL (7.0-11.0); Platelet Count 326 th/mm3 (150-450); Red Blood Count 3.86 mil/mm3 (4.00-5.30); Red Cell Distribution Width 15.6 % (11.6-17.2); White Blood Count 12.4 th/mm3 (4.0-11.0)
[2017-12-22] MEDS: Ibuprofen 600 MG Tablet PO PRN ×2 (04:17→10:56)
[2017-12-22 08:18] VITALS: BP 124/85; PULSE 86; TEMP 98
--- NOTE | 2017-12-22 09:09 | MD ---
cc: Placido Short MD DATE OF DISCHARGE: 12/22/2017 ADMITTING DIAGNOSIS: 1. at 38-39 weeks. 2. History of preeclampsia. 3. Previous section x 2. DISCHARGE DIAGNOSIS: 1. at 38-39 weeks. 2. History of preeclampsia. 3. Previous section x 2. 4. Delivered. HISTORY OF PRESENT ILLNESS: The patient is a 32-year-old white female, para 2-0-0-2, with an EDC of at 08/14/2017 by early ultrasound. Her course was benign. Her first 2 deliveries notable for C-sections for severe preeclampsia. On the day of admission, her blood pressure had risen to 160/110 and she was admitted for repeat section and had delivery of a viable vigorous male, Apgars were 8 and 9, weight 7 pounds 5 ounces. received magnesium sulfate therapy. Her BP improved. She was discharged home in excellent condition on 12/22/2017. She was advised NPV, light activity, no driving, return to see me in 1 week. She is to call for abnormal pain, bleeding, temperature, signs of infection or depression. She was carefully instructed in wound incision care. She was given a prescription for Percocet 5 one to two p.o. every 4 hours p.r.n. pain, number 30. After the [employer]-Force review was done. Placido Short MD JAW/DL , 08:33 AM , 08:40 AM
== END 2017-12-22 19:49 | disposition home or self-care (01) ==
LOC: H2E 15:47 → H1EA 12-20 13:52
PROVIDERS: ADMIT Obstetrics & Gynecology; ATTEND Obstetrics & Gynecology